=== PATIENT | female | born 1955 | race Caucasian/White ===

== ENCOUNTER 2018-09-17 00:30 | Emergency (ER) | payer MEDICARE, BC ==
[2018-09-17] MEDS ORDERED: HALOPERIDOL LACTATE INJ 5 MG/1 ML VIAL IV ONE ×2 (00:44→01:06)
[2018-09-17] MEDS ORDERED: LIDOCAINE 5% (700 MG) TRANSDERMAL ADH..PATCH TP ONE (00:44)
[2018-09-17] MEDS ORDERED: KETOROLAC TROMETHAMINE 60 MG/2 ML SDV IM ONE (00:44)
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
[2018-09-17 01:47] LABS: APPEARANCE,URINE SLIGHTLY-CLOUDY; BILIRUBIN,URINE NEGATIVE (NEGATIVE); COLOR,URINE YELLOW; GLUCOSE, URINE NEGATIVE (NEGATIVE); KETONES,URINE NEGATIVE (NEGATIVE); LEUKOCYTE ESTERASE,URINE SMALL (NEGATIVE); NITRITE,URINE NEGATIVE (NEGATIVE); PROTEIN,URINE NEGATIVE (NEGATIVE); UROBILINOGEN,URINE NEGATIVE mg/dL (<2.0)
[2018-09-17] MEDS ORDERED: HALOPERIDOL LACTATE INJ 5 MG/1 ML VIAL IM ONE ×2 (01:48→23:32)
[2018-09-17 02:18] LABS: URINE AMPHETAMINES SCREEN NEGATIVE; URINE BARBITURATES SCREEN UNCONFIRMED POSITIVE; URINE BENZODIAZEPINES SCREEN UNCONFIRMED POSITIVE; URINE COCAINE SCREEN NEGATIVE; URINE MARIJUANA (THC) SCREEN NEGATIVE; URINE METHADONE SCREEN NEGATIVE; URINE PHENCYCLIDINE SCREEN NEGATIVE
[2018-09-17 02:32] LABS: ABSOLUTE LYMPHOCYTES (AUTO) 0.9 10^3/uL (0.5-4.7); ABSOLUTE MONOCYTES (AUTO) 0.3 10^3/uL (0.1-1.4); ABSOLUTE NEUT (AUTO) 7.4 10^3/uL (1.7-8.2); BASOPHILS % (AUTO) 0.4 % (0-2); EOSINOPHILS % (AUTO) 0.1 % (0-6); HEMATOCRIT 36.1 % (36.0-47.0); HEMOGLOBIN 12.4 g/dL (12.0-15.5); MEAN CORPUSCULAR HEMOGLOBIN 35.2 pg (27.0-33.4); MEAN CORPUSCULAR HGB CONC 34.2 g/dL (32.0-36.0); MEAN CORPUSCULAR VOLUME 103 fl (80-97); MONOCYTES % (AUTO) 3.2 % (3-13); PLATELET COUNT 248 10^3/uL (150-450); RED BLOOD COUNT 3.51 10^6/uL (3.72-5.28); RED CELL DISTRIBUTION WIDTH 14.2 % (11.5-14.0); SEGMENTED NEUTROPHILS % (AUTO) 86.3 % (42-78); TOTAL CELLS COUNTED % (AUTO) 100 %; WHITE BLOOD COUNT 8.6 10^3/uL (4.0-10.5)
[2018-09-17 02:47] LABS: ALANINE AMINOTRANSFERASE 27 U/L (9-52); ALBUMIN 4.2 g/dL (3.5-5.0); ALKALINE PHOSPHATASE 65 U/L (38-126); ANION GAP 6 (5-19); ASPARTATE AMINO TRANSFERASE 32 U/L (14-36); BILIRUBIN,DIRECT 0.2 mg/dL (0.0-0.4); BILIRUBIN,TOTAL 0.4 mg/dL (0.2-1.3); BLOOD UREA NITROGEN 4 mg/dL (7-20); CARBON DIOXIDE 28 mmol/L (22-30); CHLORIDE 107 mmol/L (98-107); GLUCOSE 93 mg/dL (75-110); POTASSIUM 3.6 mmol/L (3.6-5.0); SODIUM 141.3 mmol/L (137-145); TOTAL PROTEIN 6.4 g/dL (6.3-8.2)
[2018-09-17 03:01] LABS: ACETAMINOPHEN < 10 ug/mL (10-30); ALCOHOL < 10 mg/dL (NONE DETECTED)
[2018-09-17 03:02] LABS: SALICYLATE < 1.0 mg/dL (2.0-20.0)
--- NOTE | 2018-09-17 03:37 | RADIOLOGY REPORT (SQ) ---
EXAM DESCRIPTION: XR LUMBAR SPINE ANTEROPOSTERIOR, LATERAL, AND OBLIQUES, XR SACRUM COCCYX 2 OR MORE VIEWS COMPLETED DATE/TME: 09/17/2018 00:45 CLINICAL HISTORY: 63 years Female, fall, chronic pain COMPARISON: None. Findings: Normal alignment. Mild lumbar levo convexity. Degenerative disc disease. Bone demineralization. Right upper abdominal clips. Vertebral and intervertebral heights are maintained. Extraspinal structures are grossly intact. IMPRESSION: No acute findings of XR LUMBAR SPINE ANTEROPOSTERIOR, LATERAL, AND OBLIQUES, XR SACRUM COCCYX 2 OR MORE VIEWS. .
--- NOTE | 2018-09-17 09:30 | EKG REPORT ---
SEVERITY:- ABNORMAL ECG - SINUS RHYTHM PROBABLE LEFT ATRIAL ABNORMALITY PROBABLE INFERIOR INFARCT, AGE INDETERMINATE BORDERLINE PROLONGED QT INTERVAL : Confirmed by: Mary Gallegos MD 17-Sep-2018 09:29:47
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
[2018-09-17] MEDS: VENLAFAXINE HCL 37.5 MG CAP.SR.24H PO SCH (11:54)
[2018-09-17] MEDS: BUSPIRONE HCL 10 MG TABLET PO SCH ×2 (11:54→18:53)
[2018-09-17] MEDS: HALOPERIDOL 5 MG TABLET PO SCH ×2 (11:54→18:53)
--- NOTE | 2018-09-17 12:03 | ER Document Report ---
Entered by JULEE WASHBURN SCRIBE 09/17/18 [id number] Acting as scribe for:MANJINDER BRANDON DO Doctor's Note Notes: 09/17/18 11:25 Medical rounds: Patient is a 63-year-old female with a history of chronic opiate dependence that has been subsequently weaned presented by EMS reportedly for a fall. Patient states after using the bathroom in the middle of the night she tripped over her pajamas and subsequently hit her head. Patient states diazepam is only medication that works for her. She states she is no longer depressed and would like to go home. Patient complains of back pain and requests a heating pad. GENERAL: Alert, somewhat flat affect, occasional shifting in bed. No acute distress. HEAD: Normocephalic, atraumatic. EYES: Pupils equal, round, and reactive to light. Extraocular movements intact. ENT: Oral mucosa moist, tongue midline. NECK: Full range of motion. Supple. Trachea midline. LUNGS: No respiratory distress. EXTREMITIES: Moves all 4 extremities spontaneously. NEUROLOGICAL: Alert and oriented x3. Normal speech. PSYCH: Somewhat flat affect. SKIN: Warm, dry, normal turgor. 09/17/18 17:37 Medication recommendations received and appreciated, I have added Haldol, Effexor and BuSpar, we will not continue the patient's home gabapentin. Patient will be maintained on IVC overnight and rechecked in the morning. I personally performed the services described in the documentation, reviewed and edited the documentation which was dictated to the scribe in my presence, and it accurately records my words and actions.
[2018-09-17] MEDS ORDERED: DIPHENHYDRAMINE HCL 50 MG/ML VIAL IM ONE (23:33)
[2018-09-17] MEDS ORDERED: MIDAZOLAM 2 MG/2 ML INJ IM ONE (23:33)
[2018-09-18] MEDS: HALOPERIDOL 5 MG TABLET PO SCH ×2 (09:11→18:01)
[2018-09-18] MEDS: VENLAFAXINE HCL 37.5 MG CAP.SR.24H PO SCH (09:11)
[2018-09-18] MEDS: BUSPIRONE HCL 10 MG TABLET PO SCH ×2 (09:11→17:56)
--- NOTE | 2018-09-18 09:42 | ER Document Report ---
Doctor's Note Notes: 09/18/18 09:40 Patient seen and examined. She is complaining of a headache. Patient has continually complained of pain since arrival. She denies any visual changes. Has no other acute complaints or concerns for me at this time. Head is normocephalic and atraumatic. Pupils are equal round, reactive to light. Oral mucosa is moist. Heart regular rate and rhythm, lungs are clear to oscillation bilaterally. Patient is lying in bed with a cloth over her face. She is cooperative with examiner but perseverates on her pain. This is a 63-year-old female with IVC in place, opioid and benzo dependence, has made threats towards her . Medication recommendations have been made, will reassess for response. We will add in PRN Tylenol and ibuprofen for her pain.
[2018-09-18] MEDS: ACETAMINOPHEN 325 MG TABLET PO PRN ×3 (10:39→22:40)
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
[2018-09-18] MEDS: DIVALPROEX SODIUM 250 MG TABLET.DR PO SCH (18:01)
[2018-09-19] MEDS: IBUPROFEN 600 MG TABLET PO PRN ×2 (02:57→13:42)
[2018-09-19] MEDS: ACETAMINOPHEN 325 MG TABLET PO PRN ×2 (03:02→08:58)
[2018-09-19] MEDS: BUSPIRONE HCL 10 MG TABLET PO SCH ×2 (09:12→17:05)
[2018-09-19] MEDS: HALOPERIDOL 5 MG TABLET PO SCH ×2 (09:12→17:05)
[2018-09-19] MEDS: DIVALPROEX SODIUM 250 MG TABLET.DR PO SCH ×2 (09:13→17:05)
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
[2018-09-19 13:26] VITALS: BP 150/99
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
== END 2018-09-19 17:30 | disposition home or self-care (01) ==
LOC: ER 00:30
DX: F11.23 Opioid dependence with withdrawal (principal); R45.850 Homicidal ideations; F91.9 Conduct disorder, unspecified; R45.6 Violent behavior; W01.0XXA Fall on same level from slipping, tripping and stumbling without subsequent striking against object, initial encounter; Y92.002 Bathroom of unspecified non-institutional (private) residence as the place of occurrence of the external cause; G89.29 Other chronic pain; M54.5 Low back pain
CPT/HCPCS: 93005; 96376; 99291; 96372; 96374; 36415; 87086; 80307 ×4; 85025; 80053; 81001; 72220; 72110; 93010; A9270 ×13; J2250; J1630; J3490